=== PATIENT | male | born 1985 | race Caucasian/White ===

== ENCOUNTER 2018-10-11 15:02 | Emergency (ER) | payer SELFPAY ==
[2018-10-11 15:13] VITALS: BP 153/89; PULSE 81; RESP 18; TEMP 36.4; O2SAT 98
[2018-10-11] MEDS: Tetanus & Diphtheria Tox,ADULT 0.5 ML VIAL IM (15:38)
--- NOTE | 2018-10-11 16:19 | ED.GENADUL_ITS ---
Discharge Plan Disposition Patient Disposition: HOME Condition: Good Discharge Details Chief Complaint: Laceration Clinical Impression: Knee laceration Primary Care Provider: Cristela Rooney V ED Provider: Dillan Hannah Discharge Instructions Instructions: Care For Your Stitches (ED), Laceration (ED) Additional Instructions: Please keep your sutures covered and clean. Do not directly soak the area. Watch for any signs of infection and return if any increasing redness, swelling, pain, drainage. Please return in the next 7-10 days for reevaluation and potential suture removal. If you notice any worsening of your symptoms, or any new symptoms such as vomiting, diarrhea, fever, chills, shortness of breath, chest pain, numbness, weakness, or fainting , please return immediately to the emergency department for reevaluation. Please follow up with your primary care provider as soon as possible for reassessment and reevaluation. As always, it was a pleasure participating in your medical care today. Referrals: Cristela Rooney MD [Primary Care Provider] - Discharge Data Discharge Date/Time-TO BE ENTERED AT DEPARTURE: 10/11/18 15:40 Medical Decision Making This is a 32-year-old male with no significant past medical history who presents for laceration to his right knee. It is linear, he cut it on clean metal while maple sugar ring. Laceration is roughly 2 cm, and linear. No evidence of tendon involvement. No joint laxity, or evidence of weakness with flexion or extension of the knee, no neurovascular compromise distal to the laceration. Patient received good wound edge reapproximation, no evidence of bleeding. Dermabond was placed on the sutures, patient will be discharged home with close follow-up as well as instructions to return for suture removal in 10 days. I have extensively reviewed the treatment plan and discharge instructions with the patient. I have addressed all patient concerns at this time. The patient was made aware of what symptoms to monitor for that would warrant a return to the emergency department. Discussed the plan with the patient, they demonstrate verbal understanding and agreement with our assessment and plan at this time. HPI General Date/Time Provider Initiated Documentation: 10/11/18 15:13 . HPI Narrative: This is a 32-year-old male no past medical history whose tetanus is not up-to-date who presents today for laceration on his right knee. Patient states that roughly 1 hour prior to arrival he cut his knee on a clean metal pin that he uses for maple syrup pain. He came in immediately for evaluation after the event secondary to the bleeding. He denies any numbness or tingling or weakness. He denies any pain with ambulation or walking. He denies any other complaints at this time. No other modifying factors Related Data Allergies Allergy/AdvReac Type Severity Reaction Status Date / Time No Known Allergies Allergy Unverified 10/11/18 15:17 General Stated Complaint: Laceration LESIA: 3 Review of Systems Review of Systems All systems reviewed & are unremarkable except as noted in HPI and below PFSH Social History Smoking/Tobacco Use Status: Never Substance use type: does not use Do you feel safe at home: Yes Do you feel safe in your relationship?: Yes Exam Narrative Exam Narrative: 1.Const: Well-nourished, Well-developed, appearing stated age 2.Eyes: PERRL, no conjunctival injection, and symmetrical lids. 3.ENT: Atraumatic external nose and ears. Moist MM. Neck: Symmetric, trachea midline, No thyromegaly. 4.CVS: +S1/S2, No murmurs or gallops. Peripheral pulses 2+ and equal in all extremities. Brisk capillary refill in all extremities. 5.RESP: Unlabored respiratory effort. Clear to auscultation bilaterally. No wheezes rales or rhonchi 6.GI: Soft, Nontender/Nondistended, No hepatosplenomegaly. No guarding or rebound. 7.MSK: Normocephalic/Atraumatic, Extremities w/o deformity or ttp No cyanosis or clubbing, Normal movement of all extremities. Patient demonstrates excellent flexion extension of the knee, as well as plantar and dorsiflexion. No numbness or tingling distal to the laceration site. Good capillary refill, normal pulses distal to the laceration site 8.Skin: Warm, Dry. There is evidence of a 2 cm laceration that is linear on the knee over the patella the right knee. Probing reveals no evidence of tendon damage, or tendon presence. He had no evidence of foreign bodies. 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 Sensation grossly intact, no focal neurologic deficits. 10.Psych: (AAO) x3. Appropriate mood and affect Course Vital Signs Temperature 36.4 C L 10/11/18 15:13 Pulse 81 10/11/18 15:13 Respiratory Rate 18 10/11/18 15:13 Blood Pressure 153/89 H 10/11/18 15:13 Pulse Oximetry 98 10/11/18 15:13 Temperature 36.4 C L 10/11/18 15:13 Temperature Source Temporal Artery Scan 10/11/18 15:13 Pulse 81 10/11/18 15:13 Respiratory Rate 18 10/11/18 15:13 Respiratory Effort Non-Labored 10/11/18 15:15 Blood Pressure 153/89 H 10/11/18 15:13 Pulse Oximetry 98 10/11/18 15:13 Oxygen Delivery Method Room Air 10/11/18 15:13 Oxygen Flow Rate 0 10/11/18 15:13 Pain Level 0 10/11/18 15:13
== END 2018-10-11 15:40 | disposition home or self-care (01) ==
LOC: ER 16:13
PROVIDERS: Emergency Provider Student in an Organized Health Care Education/Training Program; PCP Family Medicine
DX: S81.021A Laceration with foreign body, right knee, initial encounter (principal); W45.8XXA Other foreign body or object entering through skin, initial encounter
CPT/HCPCS: 12001; 90471

== ENCOUNTER 2020-12-11 19:02 | Emergency (ER) | payer SELFPAY ==
[2020-12-11 19:19] VITALS: BP 136/81; PULSE 70; RESP 16; TEMP 36.7; O2SAT 99
--- NOTE | 2020-12-11 19:30 | DI.RAD_ITS ---
Exam(s) XR FINGER LT INDEX EXAM: XR FINGER LT INDEX CLINICAL HISTORY: laceration fromsaw over mcp 2nd TECHNIQUE: COMPARISON: CR LEFT HAND COMPLETE from 02/18/2012 FINDINGS: Three views were obtained. There is no evidence of fracture or dislocation. IMPRESSION: RADIATION DOSE DELIVERED: Total DLP
[2020-12-11 19:43] VITALS: TEMP 36.6
--- NOTE | 2020-12-11 19:50 | ED.GENADUL_ITS ---
Discharge Plan Disposition Patient Disposition: HOME Condition: Good Discharge Details Clinical Impression: Finger laceration, Avulsion of tendon of finger Primary Care Provider: Cristela Rooney V ED Provider: Nazia Dumont Home Meds and New Rx's Prescriptions: New cephalexin 500 mg capsule 500 mg PO QID Qty: 28 RF: 0 Discharge Instructions Instructions: Finger Laceration (ED) Additional Instructions: You have an avulsion in the tendon of your finger, ice recommend following up with orthopedics, I have listed follow-up, take your antibiotic as prescribed Keep your splint in place Sutures will need to be removed in 10 to 12 days Please return with spreading redness, fever, worsening pain Ibuprofen 600 mg every 8 hours with food Tylenol as needed for discomfort Please return earlier should you have new or worsening complaints Referrals: Kane Mccoy MD [ [facility] STAFF PHYSICIAN] - Discharge Data Discharge Date/Time-TO BE ENTERED AT DEPARTURE: 12/11/20 21:05 Medical Decision Making Wound cleansed copiously, Dermabond applied Tetanus up-to-date No suspicion for fracture, given mechanism, no surrounding ecchymosis Return precautions discussed patient expressed understanding Differential Diagnosis Differential Diagnosis: Laceration, abrasion, fracture, contusion Medical Records Medical records reviewed: Yes I reviewed the patient's medical records. HPI General Mode of arrival: ambulatory . Date/Time Provider Initiated Documentation: 12/11/20 19:26 . Limitations to Documentation: no limitations . Information obtained by: patient . HPI Narrative: This 35-year-old male presents with laceration to left second digit. The event occurred 2 hours prior to arrival. Tetanus is up-to-date. He denies strength or sensation change. He states that extension of the finger is intact. Denies any additional medical complaints or injuries. Related Data Home Medications Medication Instructions Recorded Confirmed cephalexin 500 mg PO QID #28 cap 12/11/20 Previous Rx's Medication Instructions Recorded cephalexin 500 mg PO QID #28 cap 12/11/20 Allergies Allergy/AdvReac Type Severity Reaction Status Date / Time No Known Allergies Allergy Unverified 12/11/20 19:22 General Stated Complaint: Laceration LESIA: 4 Review of Systems Narrative: Review of systems obtained x3 aside from where indicated in HPI PFSH Social History Smoking/Tobacco Use Status: Never Smoking risk assessment performed?: Yes Drug use: Never Substance use type: does not use Do you feel safe at home: Yes Do you feel safe in your relationship?: Yes Exam Extrem Other: Left second finger with laceration overlying the MCP, appears to be down to periosteum, flexion and extension intact, no evidence of tendon injury Neurovascularly intact, brisk capillary refill Course Vital Signs Vital signs: Vital Signs Pulse 70 12/11/20 19:19 Respiratory Rate 16 12/11/20 19:19 Blood Pressure 136/81 12/11/20 19:19 Pulse Oximetry 99 12/11/20 19:19 Temperature 36.6 C 12/11/20 19:43 Temperature Source Skin 12/11/20 19:43 Pulse 70 12/11/20 19:19 Respiratory Rate 16 12/11/20 19:19 Respiratory Effort Non-Labored 12/11/20 19:21 Blood Pressure 136/81 12/11/20 19:19 Blood Pressure Position Sitting 12/11/20 19:19 Pulse Oximetry 99 12/11/20 19:19 Oxygen Delivery Method Room Air 12/11/20 19:19 Oxygen Flow Rate 0 12/11/20 19:19 Pain Level 5 12/11/20 19:19 Procedures Laceration Laceration 1: Site: upper extremity Size (cm): 2 Description: flap Skin layer closed with: other (skin adhesive)
[2020-12-11] MEDS: Cephalexin 500 MG CAP PO (20:53)
--- NOTE | 2020-12-11 20:55 | DI.VRAD_ITS ---
PROCEDURE INFORMATION: Exam: XR Left Finger(s) Exam date and time: 12/11/2020 8:05 PM Age: 35 years old Clinical indication: Injury or trauma; Laceration; Left; Index finger; Patient HX: Table saw vs finger TECHNIQUE: Imaging protocol: XR Left fingers. Views: Minimum 2 views. Total images: 3 COMPARISON: No relevant prior studies available. FINDINGS: Bones/joints: No bony or joint space abnormality. No fracture. Soft tissues: No opaque foreign body. No soft tissue emphysema. IMPRESSION: No acute findings. Dictated and Authenticated by: Abdullahi Russell MD. Ordering:[id number] Mandujaon MD
== END 2020-12-11 21:05 | disposition home or self-care (01) ==
PROVIDERS: Emergency Provider Physician Assistant; PCP Family Medicine
DX: S61.210A Laceration without foreign body of right index finger without damage to nail, initial encounter (principal); W27.0XXA Contact with workbench tool, initial encounter
CPT/HCPCS: 12001; 99281; 73140

== ENCOUNTER 2021-01-14 18:48 | Outpatient (REF) | payer SELFPAY ==
[2021-01-17 10:30] LABS: Lyme Ab w Rflx to Lyme Confirm Negative (Negative)
[2021-01-18 21:24] LABS: Anaplasma phagocytophilum Negative (Negative); B. miyamotoi PCR Negative (Negative); Babesia divergens/MO-1 Negative (Negative); Babesia duncani Negative (Negative); Babesia microti Negative (Negative); Ehrlichia chaffeensis Negative (Negative); Ehrlichia ewingii/canis Negative (Negative); Ehrlichia muris eauclairensis Negative (Negative)
== END 2021-01-14 18:49 | disposition home or self-care (01) ==
LOC: NCHCN 18:48
PROVIDERS: PCP Family Medicine; Visit Provider Nurse Practitioner Family
DX: M79.609 Pain in unspecified limb (principal)
CPT/HCPCS: 87798; 86618